=== PATIENT | female | born 2000 | race Caucasian/White ===

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

== ENCOUNTER 2022-07-23 22:01 | Emergency (ER) | payer OTHER, SELFPAY ==
[2022-07-23 22:02] VITALS: BP 140/96; PULSE 66; RESP 18; TEMP 36.1; O2SAT 98; BMI 23.8
[2022-07-23] MEDS: 0.9% Normal Saline 1,000 ML 999 ML IV (22:41)
[2022-07-23] MEDS: DiphenhydrAMINE 50 MG/ML Syringe IV (22:42)
[2022-07-23] MEDS: proCHLORPERazine 10 MG/2 ML Vial IV (22:42)
--- NOTE | 2022-07-23 23:37 | EX.ED.VIS.HA ---
HPI History of Present Illness Chief Complaint: Headache Informant: patient Narrative Narrative: Patient presents with complex migraine. This patient has had multiple episodes of complex migraines over the last several years. She normally gets right-sided weakness facial droop and difficulty with speech. She started with that today. But she got no weakness. She states she had a little bit of tingling of her right hand. She did momentarily feel like she had slight vision change in her right which she has also gotten before. But those symptoms are fully resolved. She states she does have a headache that is a typical migraine for her. She states is not that bad and only a 3 now. No recent trauma. No fevers or chills. She has not been sick recently. She is not nauseated now. She is not on any blood thinners. She has no neurologic symptoms at all now. She states when she gets these she has gone to the hospital and gotten IV fluids and medications. This usually aborts her symptoms and she does not develop a significant headache. It is typical for her to have neurologic symptoms and then developed a headache over the next 24 hours. She states if she does not get meds in the hospital she usually gets a significant increase in headache the next day. Overall, this was a more mild version of her typical complex migraine. [facility] Medical History Migraines Home Medications cephalexin 500 mg capsule 500 mg PO TID 7 days #21 caps 10/28/21 [Rx Last Taken Unknown] ketorolac 10 mg tablet 10 mg PO 4X/DAY PRN PRN pain 5 days #20 tabs 10/28/21 [Rx Last Taken Unknown] medroxyprogesterone 150 mg/mL intramuscular syringe mg IM 10/28/21 [History Last Taken Unknown] oxycodone-acetaminophen 5 mg-325 mg tablet (Percocet) 1 tab PO Q6H PRN pain 3 days #12 tabs 10/28/21 [Rx Last Taken Unknown] Allergy/AdvReac Type Severity Reaction Status Date / Time Estrogens AdvReac Other Verified 07/23/22 22:02 [id number] Antimigraine AdvReac Other Verified 07/23/22 22:02 Agents Social History Smoking Status: Never smoker ROS ROS ED Constitutional Constitutional ED: Denies fever(s) or subjective Eyes Eyes: Reports change in vision ENT ENT ED: Denies rhinorrhea or sore throat Cardiovascular Cardiovascular: Denies palpitations Respiratory/Chest Respiratory/Chest: Denies cough or dyspnea Gastrointestinal Gastrointestinal: Denies nausea or vomiting Musculoskeletal Musculoskeletal: Denies back pain, myalgias or neck pain Neurologic Neurologic: Reports headache(s) and paresthesias; Denies weakness Endocrine Endocrinology: Denies polyuria Hematologic/Lymphatic Hematologic/Lymphatic: Denies easy bleeding, easy bruising or lymphadenopathy Allergic/Immunologic Allergic/Immunologic ED: Denies urticaria EXAM Physical Exam Narrative Exam Narrative: Patient is awake and alert. She is sitting comfortably on the bed. She is smiling. The room is very well lit. She is nontoxic in appearance. There is no sign of head trauma. No temporal artery tenderness. No sinus tenderness or discharge. No pain with motion of her eyes. Pupils are equal round reactive to light and accommodate. No photophobia on exam. Oropharynx is normal. No carotid bruit. No meningismus. Lungs are clear. Heart is regular without murmur gallop or rub. Peripheral pulses are equal and normal. Abdomen is soft completely nontender. There is no CVA tenderness. There is no rashes or petechiae anywhere. There is no pain to her extremities. She has an NIH of 0. Const Vital Signs: 07/23/22 22:02 Temperature 97 F L Temperature Source Temporal Pulse Rate 66 Respiratory Rate 18 Blood Pressure 140/96 H Blood Pressure Mean 110 Pulse Ox 98 Oxygen Delivery Method Room Air MDM MDM MDM Narrative Medical decision making narrative: Patient is given IV fluids as well as Compazine and Benadryl. She is completely resolved. She feels well. She is awake alert and appropriate. I think it is appropriate to get her home at this time. I do not think blood work is indicated. There is no sign of fevers chills or meningitis. I do not think CAT scan is needed. She has no neurologic deficit now. She had very mild version of her typical complex migraine. The symptoms are completely resolved. I do not think this blood work, electrolytes CBC or CAT scan of the head would add to her diagnosis or treatment. Discharge Plan Triage Chief Complaint: Headache ED Provider: Homero Dan Dx/Rx/DC Orders Clinical Impression: Migraine Instructions: ED, Migraine (Classical) Prescriptions: No Action medroxyprogesterone 150 mg/mL syringe IM Label Comments: ADMINISTER 150 MG INTO THE MUSCLE ONCE EVERY 3 MONTHS ketorolac 10 mg tablet 10 mg PO 4X/DAY PRN PRN (Reason: pain) 5 Days Qty: 20 0RF oxycodone-acetaminophen [Percocet] 5-325 mg tablet 1 tab PO Q6H PRN (Reason: pain) 3 Days Qty: 12 0RF cephalexin 500 mg capsule 500 mg PO TID 7 Days Qty: 21 0RF Primary Care Provider: Care Physician,No Primary Referrals: Care Physician,No Primary [Primary Care Provider] - Activity Restrictions/Additional Instructions: Follow-up with your neurologist. Disposition Disposition: Home, Self Care
[2022-07-24 00:34] VITALS: PULSE 62; RESP 16; O2SAT 98
== END 2022-07-24 00:36 | disposition home or self-care (01) ==
PROVIDERS: Emergency Provider Emergency Medicine; Visit Provider Emergency Medicine
DX: G43.909 Migraine, unspecified, not intractable, without status migrainosus (principal); R47.9 Unspecified speech disturbances
CPT/HCPCS: 96361; 96374; 96375; 99282; J7030; A4216